=== PATIENT | female | born 1945 | race Two or more races ===

== ENCOUNTER 2023-07-16 10:55 | Outpatient (CLI) | payer OTHER ==
[2023-07-16 12:00] LABS: PH,URINE 5.5 (5.0-8.0); URINE APPEARANCE Clear; URINE BILIRRUBIN Negative (NEGATIVE); URINE BLOOD Negative; URINE COLOR Yellow; URINE GLUCOSE Negative (NEGATIVE); URINE LEUKOCYTE Small; URINE NITRATE Negative; URINE PROTEIN Negative (NEGATIVE); URINE UROBILINOGEN 0.2 E.U./dl
[2023-07-16 12:00] LABS: HEMATOCRIT 33.9 % (36.0-45.00); HEMOGLOBIN 10.7 g/dL (12.0-15.00); MEAN CELL VOLUME 82.6 fL (80.00-100.00); MEAN CORPUSCULAR HEMOGLOBIN 26.1 pg (27.00-32.0); MEAN CORPUSCULAR HGB CONC 31.6 g/dl (32.0-36.0); PLATELET COUNT 313 K/uL (150-450); RED CELL DISTRIBUTION WIDTH 13.7 % (11.5-14.5)
[2023-07-16 12:04] LABS: URINE BACTERIA 861.6 uL (0.0-1933); URINE EPITHELIAL CELLS 35.7 uL (0.0-38.8); URINE RBC 4.5 uL (0.0-20.8); URINE WBC 49.4 uL (0.0-23.2)
[2023-07-16 12:23] LABS: PARTIAL THROMBOPLASTIN TIME 24.1 SECONDS (22.0-34.0); PROTHROMBIN TIME 10.5 SECONDS (9.0-11.5)
[2023-07-16 12:35] LABS: CALCIUM 9.9 mg/dL (8.5-10.1); CREATININE SERUM 1.01 mg/dL (0.55-1.02); GFR 53.43; POTASSIUM 4.86 mEq/L (3.5-5.1)
[2023-07-16] MEDS ORDERED: ZOCOR40 MG PO (13:57)
[2023-07-16] MEDS ORDERED: METFORMIN HCL500 M3 PO (13:57)
[2023-07-16] MEDS ORDERED: GLIPIZIDE XL5 MG PO (13:58)
[2023-07-16] MEDS ORDERED: ZESTRIL5 MG PO (13:58)
[2023-07-16] MEDS ORDERED: FENOFIBRATE48 MG PO (13:58)
== END 2023-07-16 11:01 | disposition home or self-care (01) ==
LOC: LAB 10:55 → RAD 10:55 → LAB 11:01
PROVIDERS: ATTEND Orthopaedic Surgery Sports Medicine
DX: Z01.818 Encounter for other preprocedural examination (principal); D68.9 Coagulation defect, unspecified

== ENCOUNTER 2023-07-16 11:45 | Inpatient (IN) | payer OTHER ==
[~2023-07-16] VITALS: Ht 154.9 cm; Wt 59.0 kg
[2023-07-16] MEDS ORDERED: METFORMIN HCL500 M3 PO (13:57)
[2023-07-16] MEDS ORDERED: ZOCOR40 MG PO (13:57)
[2023-07-16] MEDS ORDERED: ZESTRIL5 MG PO (13:58)
[2023-07-16] MEDS ORDERED: GLIPIZIDE XL5 MG PO (13:58)
[2023-07-16] MEDS ORDERED: FENOFIBRATE48 MG PO (13:58)
[2023-07-22 15:52] LABS: HEMATOCRIT 28.1 % (36.0-45.00); HEMOGLOBIN 9.3 g/dL (12.0-15.00); RED BLOOD COUNT 3.44 M/uL (4.00-6.00)
[2023-07-23 06:33] LABS: HEMATOCRIT 26.7 % (36.0-45.00); MEAN CELL VOLUME 81.7 fL (80.00-100.00); MEAN CORPUSCULAR HGB CONC 33.2 g/dl (32.0-36.0); PLATELET COUNT 230 K/uL (150-450); RED BLOOD COUNT 3.27 M/uL (4.00-6.00); RED CELL DISTRIBUTION WIDTH 13.7 % (11.5-14.5)
[2023-07-23 06:35] LABS: HEMOGLOBIN 8.9 g/dL (12.0-15.00); MEAN CORPUSCULAR HEMOGLOBIN 27.2 pg (27.00-32.0)
[2023-07-24 06:36] LABS: HEMATOCRIT 32.5 % (36.0-45.00); HEMOGLOBIN 10.6 g/dL (12.0-15.00); MEAN CELL VOLUME 81.8 fL (80.00-100.00); MEAN CORPUSCULAR HEMOGLOBIN 26.8 pg (27.00-32.0); MEAN CORPUSCULAR HGB CONC 32.7 g/dl (32.0-36.0); PLATELET COUNT 241 K/uL (150-450); RED BLOOD COUNT 3.97 M/uL (4.00-6.00); RED CELL DISTRIBUTION WIDTH 13.8 % (11.5-14.5)
[2023-07-24] MEDS ORDERED: INTEGRA PLUS C1 EACH PO (06:39)
[2023-07-24] MEDS ORDERED: OXYC1TAB9 PO (06:39)
[2023-07-24] MEDS ORDERED: BACTRIM DS TAB1 EACH PO (06:39)
[2023-07-24] MEDS ORDERED: XARELTO10 MG PO (06:39)
== END 2023-07-24 18:18 | DRG 470 ==
LOC: EDUNIT# 11:45 → O/R 07-22 04:00 → SURG 07-22 04:00
PROVIDERS: ADMIT Orthopaedic Surgery Sports Medicine; ATTEND Orthopaedic Surgery Sports Medicine
PROC: 0SRC0J9 Replacement of Right Knee Joint with Synthetic Substitute, Cemented, Open Approach (ICD-10-PCS; principal; 2023-07-22 16:30)
PROC: 30233N1 Transfusion of Nonautologous Red Blood Cells into Peripheral Vein, Percutaneous Approach (ICD-10-PCS; 2023-07-23)
DX: M17.11 Unilateral primary osteoarthritis, right knee (principal); D62 Acute posthemorrhagic anemia